=== PATIENT | female | born 2000 | race Caucasian/White ===

== ENCOUNTER 2018-04-13 10:43 | Inpatient (IN) | payer OTHER ==
[2018-04-13 11:18] LABS: APPEARANCE,URINE Clear; BILIRUBIN,URINE 1+ (NEGATIVE); COLOR,URINE Yellow; GLUCOSE, URINE (UA) NEGATIVE (NEGATIVE); KETONES,URINE NEGATIVE (NEGATIVE); NITRATE,URINE NEGATIVE (NEGATIVE); OCCULT BLOOD,URINE NEGATIVE (NEG-TRACE)
[2018-04-13] MEDS ORDERED: LABETALOL HYDROCHLORIDE 5 MG/ML SOL IV ONE ×3 (11:22→19:35)
[2018-04-13 11:23] LABS: LEUKOCYTE ESTERASE ,URINE 1+ (NEGATIVE)
[2018-04-13 11:24] LABS: ICTOTEST,URINE QNS (NEGATIVE)
[2018-04-13 11:24] LABS: BASOPHILS % (AUTO) 0 % (0-3); EOSINOPHILS % (AUTO) 1 % (0-9); HEMATOCRIT 32 % (35-47); HEMOGLOBIN 10.3 gm/dl (12.0-15.5); MEAN CORPUSCULAR HEMOGLOBIN 29.4 pg (27.0-32.0); MEAN CORPUSCULAR HGB CONC 32.4 gm/dl (32.0-36.0); MEAN CORPUSCULAR VOLUME 91 fL (81-99); MONOCYTES % (AUTO) 11.4 % (0-12); NEUTROPHILS % (AUTO) 61.7 % (37-80)
[2018-04-13 11:46] LABS: ALBUMIN 2.3 gm/dl (3.4-5.0); BILIRUBIN,TOTAL 0.4 mg/dl (0.2-1.0); CALCIUM 8.8 mg/dl (8.5-10.1); CARBON DIOXIDE 24.6 mEq/L (21-32); CREATININE 0.59 mg/dl (0.60-1.00); POTASSIUM 3.9 mMol/L (3.5-5.1); TOTAL PROTEIN 6.3 gm/dl (6.4-8.2)
[2018-04-13] MEDS: NIFEDIPINE 10 MG SGL PO SCH ×2 (14:26→20:34)
[2018-04-13] MEDS: SODIUM CHLORIDE 0.9% FLUSH 10 ML SOL IV SCH (14:32)
[2018-04-13] MEDS: SODIUM CHLORIDE 0.9% FLUSH 10 ML SOL IV PRN (19:44)
[2018-04-14] MEDS ORDERED: ACETAMINOPHEN 500 MG 500 MG TAB ONE ×2 (01:37→19:48)
[2018-04-14] MEDS: ACETAMINOPHEN 500 MG 500 MG TAB PO PRN ×2 (01:42→19:54)
[2018-04-14] MEDS ORDERED: LABETALOL HYDROCHLORIDE 5 MG/ML SOL IV ONE ×3 (02:21→19:57)
[2018-04-14] MEDS: NIFEDIPINE 10 MG SGL PO SCH ×5 (02:30→19:54)
[2018-04-14] MEDS: SODIUM CHLORIDE 0.9% FLUSH 10 ML SOL IV SCH ×4 (02:35→20:30)
[2018-04-14 07:19] LABS: BASOPHILS % (AUTO) 1 % (0-3); EOSINOPHILS % (AUTO) 1 % (0-9); HEMATOCRIT 29 % (35-47); HEMOGLOBIN 9.4 gm/dl (12.0-15.5); LYMPHOCYTES % (AUTO) 27.5 % (10-50); MEAN CORPUSCULAR HEMOGLOBIN 29.4 pg (27.0-32.0); MEAN CORPUSCULAR HGB CONC 32.2 gm/dl (32.0-36.0); MEAN CORPUSCULAR VOLUME 91 fL (81-99); MONOCYTES % (AUTO) 9.7 % (0-12); NEUTROPHILS % (AUTO) 60.9 % (37-80)
[2018-04-14 07:54] LABS: BILIRUBIN,TOTAL 0.4 mg/dl (0.2-1.0); CALCIUM 8.4 mg/dl (8.5-10.1); CARBON DIOXIDE 26.5 mEq/L (21-32); CREATININE 0.57 mg/dl (0.60-1.00); POTASSIUM 3.5 mMol/L (3.5-5.1); TOTAL PROTEIN 5.5 gm/dl (6.4-8.2)
[2018-04-14] MEDS ORDERED: MAGNESIUM SULFATE 5 GM/10 ML SOL IV PRN (13:42)
[2018-04-14] MEDS ORDERED: PHENYTOIN SODIUM IV PRN (13:42)
[2018-04-14] MEDS ORDERED: MIDAZOLAM 2 MG/2 ML SOL IV PRN (13:42)
[2018-04-14] MEDS ORDERED: MAGNESIUM SULFATE 20GM(PREMIX) 20 GM/500 ML SOL IV ONE (13:42)
[2018-04-14] MEDS ORDERED: CALCIUM GLUCONATE 10% 100 MG/ML SOL IV PRN (13:42)
[2018-04-14] MEDS ORDERED: MISOPROSTOL 100 MCG TAB PO ONE (14:00)
[2018-04-14] MEDS ORDERED: AMPICILLIN 1 GM PDS 2 GM in SODIUM CHLORIDE 0.9% 100 ML 100 ML IV SCH (14:00)
[2018-04-14 14:52] LABS: MAGNESIUM 1.7 mg/dl (1.8-2.4); URIC ACID 4.1 mg/dl (2.6-7.2)
[2018-04-14] MEDS ORDERED: OXYTOCIN 10000 MU/ML SOL IM PRN (14:52)
[2018-04-14] MEDS ORDERED: CARBOPROST 250 MCG/ML SOL IM PRN (14:52)
[2018-04-14] MEDS ORDERED: LACTATED RINGERS 1,000 ML IV PRN (14:52)
[2018-04-14] MEDS ORDERED: METHYLERGONOVINE MALEATE 0.2 MG/ML SOL IM PRN (14:52)
[2018-04-14] MEDS ORDERED: FENTANYL 100MCG/2ML SOL IV PRN (14:52)
[2018-04-14] MEDS ORDERED: MEPIVACAINE HCL 1% MPF 30 ML/VIAL SOL INFIL PRN (14:52)
[2018-04-14] MEDS: SODIUM CHLORIDE 0.9% FLUSH 10 ML SOL IV PRN (15:20)
[2018-04-14] MEDS ORDERED: AMPICILLIN 1 GM PDS ONE ×3 (16:25→23:55)
[2018-04-14 17:40] LABS: APPEARANCE,URINE Clear; BILIRUBIN,URINE NEGATIVE (NEGATIVE); COLOR,URINE Yellow; GLUCOSE, URINE (UA) NEGATIVE (NEGATIVE); KETONES,URINE TRACE (NEGATIVE); LEUKOCYTE ESTERASE ,URINE NEGATIVE (NEGATIVE); NITRATE,URINE NEGATIVE (NEGATIVE); OCCULT BLOOD,URINE NEGATIVE (NEG-TRACE); UROBILINOGEN,URINE 0.2 (0.2-1.0 EU)
[2018-04-14 17:45] LABS: BACTERIA 1+ (< 1+); CRYSTALS NEGATIVE (0-3 AVE/HPF); RBC,URINE 0-2 (0-3AV/HPF)
[2018-04-14] MEDS: AMPICILLIN 1 GM PDS 1 GM in SODIUM CHLORIDE 0.9% 100 ML 100 ML IV SCH ×2 (17:54→20:35)
[2018-04-14] MEDS ORDERED: DIPHENHYDRAMINE 25 MG CAP PO ONE (21:45)
[2018-04-14] MEDS ORDERED: DIPHENHYDRAMINE 25 MG CAP ONE (21:52)
[2018-04-15] MEDS: AMPICILLIN 1 GM PDS 1 GM in SODIUM CHLORIDE 0.9% 100 ML 100 ML IV SCH ×6 (00:45→20:30)
[2018-04-15] MEDS: NIFEDIPINE 10 MG SGL PO SCH ×3 (02:36→14:13)
[2018-04-15] MEDS ORDERED: AMPICILLIN 1 GM PDS ONE ×5 (04:09→20:33)
[2018-04-15] MEDS ORDERED: TERBUTALINE SULFATE 1 MG/ML SOL SC PRN (05:29)
[2018-04-15] MEDS ORDERED: OXYTOCIN 10000 MU/ML 20,000 MU in LACTATED RINGERS 1,000 ML IV SCH (05:30)
[2018-04-15] MEDS ORDERED: LACTATED RINGERS 1,000 ML IV SCH (05:30)
[2018-04-15] MEDS ORDERED: LACTATED RINGERS 1,000 ML ONE (05:51)
[2018-04-15] MEDS ORDERED: OXYTOCIN 10000 MU/ML SOL ONE (05:51)
[2018-04-15] MEDS ORDERED: ACETAMINOPHEN 500 MG 500 MG TAB ONE ×3 (05:53→18:08)
[2018-04-15] MEDS: ACETAMINOPHEN 500 MG 500 MG TAB PO PRN ×2 (05:59→18:07)
[2018-04-15] MEDS: SODIUM CHLORIDE 0.9% FLUSH 10 ML SOL IV SCH ×3 (06:08→23:50)
[2018-04-15] MEDS: MAGNESIUM SULFATE 20GM(PREMIX) 20 GM/500 ML SOL IV ONE (08:30)
[2018-04-15] MEDS: SODIUM CHLORIDE 0.9% FLUSH 10 ML SOL IV PRN ×2 (08:31→18:38)
[2018-04-15] MEDS: LABETALOL HYDROCHLORIDE 5 MG/ML SOL IV PRN ×2 (08:32→18:37)
[2018-04-15] MEDS: NIFEDIPINE 10 MG CAPSULE PO SCH ×2 (14:35→21:04)
[2018-04-15] MEDS ORDERED: LABETALOL HYDROCHLORIDE 5 MG/ML SOL IV ONE (19:34)
[2018-04-15] MEDS: LABETALOL HYDROCHLORIDE 100 MG TAB PO SCH (21:05)
[2018-04-16] MEDS ORDERED: MAGNESIUM SULFATE 20GM(PREMIX) 20 GM/500 ML SOL IV ONE (01:20)
[2018-04-16] MEDS: MAGNESIUM SULFATE 20GM(PREMIX) 20 GM/500 ML SOL IV ONE (01:27)
[2018-04-16] MEDS ORDERED: CITRIC ACID/SODIUM CITRATE SOL PO ONE (01:28)
[2018-04-16] MEDS ORDERED: PHENYLEPHRINE HYDROCHLORIDE 10 MG/ML SOL ONE (01:35)
[2018-04-16] MEDS ORDERED: MORPHINE SULFATE 0.5 MG/ML SOL ONE (01:35)
[2018-04-16] MEDS ORDERED: OXYTOCIN 10000 MU/ML SOL ONE ×2 (01:35→02:57)
[2018-04-16] MEDS ORDERED: CEFAZOLIN SODIUM 1 GM PDS ONE ×2 (01:35→07:57)
[2018-04-16] MEDS ORDERED: DEXAMETHASONE 20 MG/5 ML (4 MG/ML SOL) ONE (01:36)
[2018-04-16] MEDS ORDERED: ONDANSETRON HCL 4 MG/2 ML SOL ONE (01:36)
[2018-04-16] MEDS: LACTATED RINGERS 1,000 ML IV SCH ×5 (01:45→18:18)
[2018-04-16 01:56] LABS: BASOPHILS % (AUTO) 1 % (0-3); EOSINOPHILS % (AUTO) 1 % (0-9); HEMATOCRIT 32 % (35-47); HEMOGLOBIN 10.7 gm/dl (12.0-15.5); LYMPHOCYTES % (AUTO) 16.7 % (10-50); MEAN CORPUSCULAR HEMOGLOBIN 29.8 pg (27.0-32.0); MEAN CORPUSCULAR HGB CONC 33.1 gm/dl (32.0-36.0); MEAN CORPUSCULAR VOLUME 90 fL (81-99); MONOCYTES % (AUTO) 10.5 % (0-12); NEUTROPHILS % (AUTO) 71.4 % (37-80)
[2018-04-16] MEDS ORDERED: CARBOPROST 250 MCG/ML SOL IM ONE (01:56)
[2018-04-16 02:08] LABS: ABO O; ANTIBODY SCREEN Negative; RH TYPE Positive
[2018-04-16 02:08] LABS: CREATININE 0.66 mg/dl (0.60-1.00)
[2018-04-16] MEDS ORDERED: [UNRECOGNIZED DRUG - OTHER] IV ONE ×2 (02:33)
[2018-04-16] MEDS ORDERED: LACTATED RINGERS 1,000 ML with OXYTOCIN 10000 MU/ML 20 MU IV ONE (02:43)
[2018-04-16] MEDS ORDERED: [UNRECOGNIZED DRUG - OTHER] IV ONE ×2 (02:43)
[2018-04-16] MEDS ORDERED: FLEET ENEMA PR PRN (03:56)
[2018-04-16] MEDS ORDERED: BISACODYL 10 MG SUP PR PRN (03:56)
[2018-04-16] MEDS ORDERED: WITCH HAZEL 1 EA PAD TOP PRN (03:56)
[2018-04-16] MEDS ORDERED: BENZOCAINE/MENTHOL 1 SPR TOP PRN (03:56)
[2018-04-16] MEDS ORDERED: IBUPROFEN 600 MG TAB PO PRN (03:56)
[2018-04-16] MEDS ORDERED: METHYLERGONOVINE MALEATE 0.2 MG TAB PO PRN (03:56)
[2018-04-16] MEDS ORDERED: ONDANSETRON HCL 4 MG/2 ML SOL IV PRN (03:56)
[2018-04-16] MEDS ORDERED: TEMAZEPAM 15MG 15 MG CAP PO PRN (03:56)
[2018-04-16] MEDS ORDERED: KETOROLAC TROMETHAMINE 30 MG/ML SOL IV PRN (03:56)
[2018-04-16] MEDS ORDERED: DIPHENHYDRAMINE 25 MG CAP PO PRN (03:56)
[2018-04-16] MEDS: AMPICILLIN 1 GM PDS 1 GM in SODIUM CHLORIDE 0.9% 100 ML 100 ML IV SCH (04:34)
[2018-04-16] MEDS: NIFEDIPINE 10 MG CAPSULE PO SCH (04:35)
[2018-04-16] MEDS: CEFAZOLIN (PREMIX) 1 GM 1 GM/50 ML SOL IV SCH ×2 (04:36→08:06)
[2018-04-16] MEDS ORDERED: CALCIUM GLUCONATE 10% 100 MG/ML SOL IV PRN (05:49)
[2018-04-16] MEDS: SODIUM CHLORIDE 0.9% FLUSH 10 ML SOL IV SCH ×3 (06:19→21:02)
[2018-04-16] MEDS: MULTIVITAMIN2 1 EA TAB PO SCH (09:38)
[2018-04-16] MEDS: DOCUSATE SODIUM 100 MG SGL PO SCH ×2 (09:38→21:03)
[2018-04-16] MEDS: APAP/HYDROCODONE 1 EACH TABLET PO PRN ×3 (09:38→19:43)
[2018-04-16] MEDS: LABETALOL HYDROCHLORIDE 100 MG TAB PO SCH ×2 (09:38→21:03)
[2018-04-16] MEDS: FOLIC ACID 1 MG TAB PO SCH (09:38)
[2018-04-16] MEDS: FERROUS GLUCONATE 324 MG TABLET PO SCH (10:38)
[2018-04-16] MEDS ORDERED: SODIUM CHLORIDE 0.9% 500 ML 500 ML IV ONE (11:27)
[2018-04-16 11:43] LABS: UNIT TYPE O POSITIVE
[2018-04-16 11:44] LABS: UNIT TYPE O POSITIVE
[2018-04-16] MEDS ORDERED: CARBOPROST 250 MCG/ML SOL IM PRN (12:48)
[2018-04-16] MEDS: LABETALOL HYDROCHLORIDE 5 MG/ML SOL IV PRN (15:57)
[2018-04-16] MEDS ORDERED: FUROSEMIDE 20mg SOL IV ONE (18:00)
[2018-04-16] MEDS ORDERED: FUROSEMIDE 20mg SOL ONE (18:06)
[2018-04-16] MEDS ORDERED: NIFEDIPINE 10 MG SGL PO ONE (18:06)
[2018-04-16] MEDS: NIFEDIPINE 10 MG SGL PO SCH (18:10)
[2018-04-17] MEDS: NIFEDIPINE 10 MG SGL PO SCH ×5 (00:44→23:33)
[2018-04-17] MEDS: APAP/HYDROCODONE 1 EACH TABLET PO PRN ×5 (00:44→20:33)
[2018-04-17] MEDS: SODIUM CHLORIDE 0.9% FLUSH 10 ML SOL IV SCH ×3 (06:12→20:34)
[2018-04-17] MEDS: DOCUSATE SODIUM 100 MG SGL PO SCH ×2 (09:17→20:33)
[2018-04-17] MEDS: MULTIVITAMIN2 1 EA TAB PO SCH (09:17)
[2018-04-17] MEDS: FERROUS GLUCONATE 324 MG TABLET PO SCH (09:17)
[2018-04-17] MEDS: LABETALOL HYDROCHLORIDE 100 MG TAB PO SCH ×2 (09:17→20:33)
[2018-04-17] MEDS: FOLIC ACID 1 MG TAB PO SCH (09:17)
[2018-04-17] MEDS: SODIUM CHLORIDE 0.9% FLUSH 10 ML SOL IV PRN ×2 (12:28→20:34)
[2018-04-17] MEDS: NIFEDIPINE 10 MG CAPSULE PO SCH (12:30)
[2018-04-17] MEDS: LACTATED RINGERS 1,000 ML IV SCH (13:01)
[2018-04-18] MEDS: APAP/HYDROCODONE 1 EACH TABLET PO PRN ×6 (00:35→23:51)
[2018-04-18] MEDS: NIFEDIPINE 10 MG SGL PO SCH ×4 (06:02→23:51)
[2018-04-18] MEDS: SODIUM CHLORIDE 0.9% FLUSH 10 ML SOL IV SCH ×2 (06:19→13:44)
[2018-04-18] MEDS: DOCUSATE SODIUM 100 MG SGL PO SCH ×2 (08:37→20:50)
[2018-04-18] MEDS: MULTIVITAMIN2 1 EA TAB PO SCH (08:37)
[2018-04-18] MEDS: FOLIC ACID 1 MG TAB PO SCH (08:37)
[2018-04-18] MEDS: LABETALOL HYDROCHLORIDE 100 MG TAB PO SCH ×2 (08:38→20:50)
[2018-04-18] MEDS: FERROUS GLUCONATE 324 MG TABLET PO SCH (08:38)
[2018-04-19] MEDS ORDERED: SODIUM CHLORIDE 0.9% 1000ML 500 ML IV ONE (00:48)
[2018-04-19] MEDS ORDERED: LABETALOL HYDROCHLORIDE 5 MG/ML SOL IV ONE ×2 (00:51→01:24)
[2018-04-19 01:07] LABS: BASOPHILS % (AUTO) 0 % (0-3); EOSINOPHILS % (AUTO) 2 % (0-9); HEMATOCRIT 30 % (35-47); HEMOGLOBIN 9.8 gm/dl (12.0-15.5); LYMPHOCYTES % (AUTO) 19.3 % (10-50); MEAN CORPUSCULAR HEMOGLOBIN 29.4 pg (27.0-32.0); MEAN CORPUSCULAR HGB CONC 32.5 gm/dl (32.0-36.0); MEAN CORPUSCULAR VOLUME 90 fL (81-99); MONOCYTES % (AUTO) 7.1 % (0-12); NEUTROPHILS % (AUTO) 71.5 % (37-80)
[2018-04-19 01:13] LABS: CARBON DIOXIDE 25.4 mEq/L (21-32); CREATININE 0.59 mg/dl (0.60-1.00); POTASSIUM 4.4 mMol/L (3.5-5.1)
[2018-04-19] MEDS ORDERED: ENOXAPARIN 80 MG SOL SC SCH (02:45)
[2018-04-19] MEDS: LABETALOL HYDROCHLORIDE 5 MG/ML SOL IV PRN ×2 (03:15→20:34)
[2018-04-19] MEDS ORDERED: ENOXAPARIN 80 MG SOL SC ONE (03:36)
[2018-04-19] MEDS ORDERED: CEFAZOLIN SODIUM 1 GM PDS ONE ×2 (03:39→07:47)
[2018-04-19] MEDS: CEFAZOLIN SODIUM 1 GM PDS 1 GM in SODIUM CHLORIDE 0.9% 50 ML 50 ML IV SCH ×2 (03:45→09:15)
[2018-04-19] MEDS: NIFEDIPINE 10 MG SGL PO SCH ×4 (05:03→23:34)
[2018-04-19 07:22] LABS: APPEARANCE,URINE Clear; BILIRUBIN,URINE NEGATIVE (NEGATIVE); COLOR,URINE Yellow; GLUCOSE, URINE (UA) NEGATIVE (NEGATIVE); KETONES,URINE NEGATIVE (NEGATIVE); LEUKOCYTE ESTERASE ,URINE NEGATIVE (NEGATIVE); NITRATE,URINE NEGATIVE (NEGATIVE); OCCULT BLOOD,URINE 2+ (NEG-TRACE); PH,URINE 7.5; UROBILINOGEN,URINE 0.2 (0.2-1.0 EU)
[2018-04-19 07:41] LABS: BACTERIA 1+ (< 1+); CRYSTALS NEGATIVE (0-3 AVE/HPF); EPITHELIAL CELLS 0-1 (SQUAMOUS); WBC,URINE 0-4 (0-5AV/HPF)
[2018-04-19] MEDS: LABETALOL HYDROCHLORIDE 100 MG TAB PO SCH ×3 (09:15→23:34)
[2018-04-19] MEDS: MULTIVITAMIN2 1 EA TAB PO SCH (09:15)
[2018-04-19] MEDS: FOLIC ACID 1 MG TAB PO SCH (09:15)
[2018-04-19] MEDS: APAP/HYDROCODONE 1 EACH TABLET PO PRN ×2 (09:15→18:35)
[2018-04-19] MEDS: DOCUSATE SODIUM 100 MG SGL PO SCH ×2 (09:15→20:34)
[2018-04-19] MEDS: FERROUS GLUCONATE 324 MG TABLET PO SCH (09:15)
[2018-04-19] MEDS: SODIUM CHLORIDE 0.9% FLUSH 10 ML SOL IV PRN (09:16)
[2018-04-19] MEDS ORDERED: LABETALOL HYDROCHLORIDE 100 MG TAB PO ONE (11:00)
[2018-04-19] MEDS ORDERED: LABETALOL HYDROCHLORIDE 100 MG TAB PO SCH (14:00)
[2018-04-20] MEDS: NIFEDIPINE 10 MG SGL PO SCH ×4 (05:10→23:59)
[2018-04-20] MEDS ORDERED: ENOXAPARIN 30 MG SOL SC ONE (07:55)
[2018-04-20] MEDS: FOLIC ACID 1 MG TAB PO SCH (08:08)
[2018-04-20] MEDS: LABETALOL HYDROCHLORIDE 100 MG TAB PO SCH ×3 (08:08→23:59)
[2018-04-20] MEDS: DOCUSATE SODIUM 100 MG SGL PO SCH ×2 (08:09→21:03)
[2018-04-20] MEDS: MULTIVITAMIN2 1 EA TAB PO SCH (08:09)
[2018-04-20] MEDS: SODIUM CHLORIDE 0.9% FLUSH 10 ML SOL IV SCH ×3 (08:09→23:59)
[2018-04-20] MEDS: FERROUS GLUCONATE 324 MG TABLET PO SCH (08:09)
[2018-04-20] MEDS: ENOXAPARIN 30 MG SOL SC SCH (08:09)
[2018-04-20] MEDS: APAP/HYDROCODONE 1 EACH TABLET PO PRN ×2 (08:09→16:30)
[2018-04-20] MEDS ORDERED: LABETALOL HYDROCHLORIDE 100 MG TAB ONE (16:19)
[2018-04-20 16:32] LABS: AMPHETAMINES NEGATIVE (NEGATIVE); BARBITUATES NEGATIVE (NEGATIVE); BENZODIAZEPINES NEGATIVE (NEGATIVE); CANNABINOL(THC) NEGATIVE (NEGATIVE); COCAINE(COC) NEGATIVE (NEGATIVE); METHADONE NEGATIVE (NEGATIVE); METHAMPHETAMINES NEGATIVE (NEGATIVE); OPIATES(OPI) NEGATIVE (NEGATIVE); OXYCODONE(OXY) NEGATIVE (NEGATIVE); PROPOXYPHENE(PPX) NEGATIVE (NEGATIVE); TRICYCLIC ANTIDEPRESSANTS NEGATIVE (NEGATIVE)
[2018-04-20] MEDS: LABETALOL HYDROCHLORIDE 5 MG/ML SOL IV PRN (17:26)
[2018-04-20] MEDS: SODIUM CHLORIDE 0.9% FLUSH 10 ML SOL IV PRN (17:27)
[2018-04-20] MEDS ORDERED: NIFEDIPINE 30 MG ER TABLET ONE (18:40)
[2018-04-21] MEDS: APAP/HYDROCODONE 1 EACH TABLET PO PRN (00:03)
[2018-04-21] MEDS: NIFEDIPINE 10 MG SGL PO SCH (06:03)
[2018-04-21] MEDS ORDERED: ENOXAPARIN 30 MG SOL SC ONE (07:54)
[2018-04-21] MEDS: DOCUSATE SODIUM 100 MG SGL PO SCH ×2 (08:03→21:01)
[2018-04-21] MEDS: MULTIVITAMIN2 1 EA TAB PO SCH (08:03)
[2018-04-21] MEDS: LABETALOL HYDROCHLORIDE 100 MG TAB PO SCH ×2 (08:03→16:53)
[2018-04-21] MEDS: FERROUS GLUCONATE 324 MG TABLET PO SCH (08:04)
[2018-04-21] MEDS: ENOXAPARIN 30 MG SOL SC SCH (08:04)
[2018-04-21] MEDS: FOLIC ACID 1 MG TAB PO SCH (08:04)
[2018-04-21] MEDS: SODIUM CHLORIDE 0.9% FLUSH 10 ML SOL IV SCH (08:04)
[2018-04-21] MEDS ORDERED: NIFEDIPINE 30 MG ER TABLET PO SCH (09:00)
[2018-04-21] MEDS ORDERED: NIFEDIPINE 30 MG ER TABLET ONE ×2 (09:15→16:00)
[2018-04-21] MEDS: NIFEDIPINE 30 MG ER TABLET PO SCH ×2 (09:19→16:53)
[2018-04-21] MEDS ORDERED: ACETAMINOPHEN 500 MG 500 MG TAB ONE (12:56)
[2018-04-21] MEDS: ACETAMINOPHEN 500 MG 500 MG TAB PO PRN (13:00)
[2018-04-22] MEDS ORDERED: NIFEDIPINE 30 MG ER TABLET ONE ×2 (00:04→09:02)
[2018-04-22] MEDS: LABETALOL HYDROCHLORIDE 100 MG TAB PO SCH ×2 (00:28→09:06)
[2018-04-22] MEDS: NIFEDIPINE 30 MG ER TABLET PO SCH ×2 (00:29→09:05)
[2018-04-22] MEDS ORDERED: ACETAMINOPHEN 500 MG 500 MG TAB ONE (02:41)
[2018-04-22] MEDS: ACETAMINOPHEN 500 MG 500 MG TAB PO PRN (02:42)
[2018-04-22 02:51] VITALS: RESP 16
[2018-04-22 06:01] VITALS: O2SAT 97
[2018-04-22] MEDS ORDERED: ENOXAPARIN 30 MG SOL SC ONE (09:02)
[2018-04-22] MEDS: DOCUSATE SODIUM 100 MG SGL PO SCH (09:05)
[2018-04-22] MEDS: ENOXAPARIN 30 MG SOL SC SCH (09:06)
[2018-04-22] MEDS: FERROUS GLUCONATE 324 MG TABLET PO SCH (09:06)
[2018-04-22] MEDS: MULTIVITAMIN2 1 EA TAB PO SCH (09:06)
[2018-04-22] MEDS: FOLIC ACID 1 MG TAB PO SCH (09:06)
[2018-04-22 09:12] VITALS: BP 132/97; PULSE 88; TEMP 98.1
== END 2018-04-22 10:00 | disposition home or self-care (01) | DRG 540 ==
LOC: ED 10:43 → OBSVTOIN 12:05 → OB 12:05
PROVIDERS: ADMIT Family Medicine; ATTEND Family Medicine
PROC: 3E033VJ Introduction of Other Hormone into Peripheral Vein, Percutaneous Approach (ICD-10-PCS; 2018-04-15)
PROC: 30233N1 Transfusion of Nonautologous Red Blood Cells into Peripheral Vein, Percutaneous Approach (ICD-10-PCS; 2018-04-16)
PROC: 10D00Z1 Extraction of Products of Conception, Low, Open Approach (ICD-10-PCS; principal; 2018-04-16 02:15)
DX: O16.3 Unspecified maternal hypertension, third trimester (principal); H53.8 Other visual disturbances; Z37.0 Single live birth; Z3A.36 36 weeks gestation of pregnancy; O14.93 Unspecified pre-eclampsia, third trimester; O61.8 Other failed induction of labor; O90.81 Anemia of the puerperium; R00.0 Tachycardia, unspecified
CPT/HCPCS: 36415; 59025; 59412; 71275; 80048; 80053; 80305; 81001; 81003; 82565; 83735; 84450; 84484; 84550; 85018; 85025; 86850; 86900; 86901; 86920; 87040; 87088; 93005; 93012; 94762; 96374; 99070; 99223; 99283; J0290; J0610; J0670; J0690; J1100; J1650; J1885; J1940; J2274; J2405; J2590; J3105; P9016; Q9967; A9270-GY; J2370; J3490

== ENCOUNTER 2018-11-23 23:01 | Emergency (ER) | payer OTHER ==
[2018-11-23] MEDS ORDERED: DIPHENHYDRAMINE 50 MG/ML SOL IM ONE (23:20)
[2018-11-23] MEDS ORDERED: DIPHENHYDRAMINE 50 MG/ML SOL ONE (23:21)
[2018-11-24 00:15] VITALS: RESP 16; TEMP 96.7
[2018-11-24 00:18] VITALS: BP 132/89; PULSE 102; O2SAT 98
== END 2018-11-24 00:02 | disposition home or self-care (01) | DRG 880 ==
LOC: ED 23:01
DX: F41.9 Anxiety disorder, unspecified (principal); T78.1XXA Other adverse food reactions, not elsewhere classified, initial encounter
CPT/HCPCS: 96372; 99282; 99283; J1200

== ENCOUNTER 2019-03-17 18:04 | Emergency (ER) | payer OTHER ==
[2019-03-17 18:58] LABS: APPEARANCE,URINE Slightly Cloudy; BILIRUBIN,URINE NEGATIVE (NEGATIVE); COLOR,URINE Dark yellow; GLUCOSE, URINE (UA) NEGATIVE (NEGATIVE); KETONES,URINE 2+ (NEGATIVE); LEUKOCYTE ESTERASE ,URINE NEGATIVE (NEGATIVE); NITRATE,URINE NEGATIVE (NEGATIVE); OCCULT BLOOD,URINE NEGATIVE (NEG-TRACE)
[2019-03-17 18:59] LABS: BASOPHILS % (AUTO) 0 % (0-3); EOSINOPHILS % (AUTO) 1 % (0-9); HEMATOCRIT 39 % (35-47); HEMOGLOBIN 12.8 gm/dl (12.0-15.5); LYMPHOCYTES % (AUTO) 22.8 % (10-50); MEAN CORPUSCULAR HGB CONC 33.1 gm/dl (32.0-36.0); MEAN CORPUSCULAR VOLUME 91 fL (81-99); MONOCYTES % (AUTO) 7.3 % (0-12); NEUTROPHILS % (AUTO) 68.8 % (37-80)
[2019-03-17 19:04] VITALS: TEMP 97.7; O2SAT 100
[2019-03-17 19:11] LABS: CALCIUM 8.9 mg/dl (8.5-10.1); CARBON DIOXIDE 27.3 mEq/L (21-32); CREATININE 0.52 mg/dl (0.60-1.00)
[2019-03-17 19:28] LABS: BACTERIA 2+ (< 1+); CRYSTALS NEGATIVE (0-3 AVE/HPF); RBC,URINE NEG (0-3AV/HPF); WBC,URINE 0-1 (0-5AV/HPF)
[2019-03-17 20:27] VITALS: RESP 18
[2019-03-17 20:28] VITALS: BP 113/74; PULSE 75
== END 2019-03-17 20:20 | disposition home or self-care (01) | DRG 392 ==
LOC: ED 18:04
DX: K21.0 Gastro-esophageal reflux disease with esophagitis (principal); Z3A.13 13 weeks gestation of pregnancy; R07.89 Other chest pain; J02.9 Acute pharyngitis, unspecified
CPT/HCPCS: 36415; 80048; 81001; 85025; 87430; 99282